=== PATIENT | male | born 2000 | race Caucasian/White ===

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

== ENCOUNTER 2022-12-09 23:23 | Emergency (ER) | payer MEDICAID ==
[~2022-12-09] VITALS: Ht 160 cm; Wt 59.0 kg
[2022-12-09 23:34] VITALS: BP 123/73; PULSE 71; RESP 20; TEMP 98; O2SAT 98
--- NOTE | 2022-12-09 23:34 | NUR ---
pt in the lobby
[2022-12-10] MEDS ORDERED: ACETAMINOPHEN EXTRA STRENGTH 500 MG TAB PO ONE (02:30)
[2022-12-10] MEDS ORDERED: cephALEXin 500 MG CAP PO ONE (02:30)
[2022-12-10] MEDS ORDERED: BACITRACIN OINT 500 UNITS/GM PKT TP ONE (02:30)
[2022-12-10] MEDS ORDERED: NON ADHERENT DRESSING TP SCH (02:30)
[2022-12-10] MEDS ORDERED: ACET-10509 PO (03:07)
[2022-12-10] MEDS ORDERED: CEPH-588 PO (03:07)
[2022-12-10] MEDS ORDERED: BACI-418 TP (03:07)
[2022-12-10] MEDS ORDERED: IBUP-2213 PO (03:07)
--- NOTE | 2022-12-10 03:20 | NUR ---
Patient discharged with v/s stable. Written and verbal after care instructions given and explained. Patient alert, oriented and verbalized understanding of instructions. Ambulatory with steady gait. All questions addressed prior to discharge. ID band removed. Patient advised to follow up with PMD. Rx of Tylenol, Bacitracin and Keflex given. Patient educated on indication of medication including possible reaction and side effects. Opportunity to ask questions provided and answered.
[2022-12-10 03:26] VITALS: BP 118/60; PULSE 60; RESP 18; TEMP 98; O2SAT 98
== END 2022-12-10 03:20 | disposition home or self-care (01) ==
LOC: MED 23:23
DX: S61.431A Puncture wound without foreign body of right hand, initial encounter (principal); J45.909 Unspecified asthma, uncomplicated; Z79.899 Other long term (current) drug therapy; W29.8XXA Contact with other powered hand tools and household machinery, initial encounter; Y93.89 Activity, other specified; Y92.89 Other specified places as the place of occurrence of the external cause; Y99.0 Civilian activity done for income or pay
CPT/HCPCS: 73130; 90471; 90715; 99284

== ENCOUNTER 2023-05-20 23:22 | Emergency (ER) | payer MEDICAID ==
[~2023-05-20] VITALS: Ht 160 cm; Wt 59.0 kg
[~2023-05-20 23:22] MED LIST: ACET-10509 PO; BACI-418 TP; CEPH-588 PO; IBUP-2213 PO
[2023-05-20 23:30] VITALS: BP 128/83; PULSE 82; RESP 15; TEMP 97.7; O2SAT 98
[2023-05-20 23:36] VITALS: O2SAT 98
[2023-05-21] MEDS ORDERED: LIDOCAINE MPF 1% 10 MG/ML VIAL INJ ONE (00:30)
[2023-05-21] MEDS ORDERED: BACITRACIN OINT 500 UNITS/GM PKT TP ONE (00:30)
== END 2023-05-21 01:27 | disposition home or self-care (01) ==
LOC: MED 23:22
DX: S61.217A Laceration without foreign body of left little finger without damage to nail, initial encounter (principal); J45.909 Unspecified asthma, uncomplicated; Z79.899 Other long term (current) drug therapy; Z79.1 Long term (current) use of non-steroidal anti-inflammatories (NSAID); Z79.2 Long term (current) use of antibiotics; W26.0XXA Contact with knife, initial encounter; Y93.89 Activity, other specified; Y92.89 Other specified places as the place of occurrence of the external cause; Y99.8 Other external cause status
CPT/HCPCS: 12001; 99282; J2001

== ENCOUNTER 2023-05-27 16:13 | Emergency (ER) | payer MEDICAID ==
[~2023-05-27] VITALS: Ht 160 cm; Wt 59.0 kg
[2023-05-27 16:27] VITALS: BP 110/61; PULSE 68; RESP 16; TEMP 97.4; O2SAT 98
[2023-05-27 16:36] VITALS: O2SAT 98
== END 2023-05-27 16:59 | disposition home or self-care (01) ==
LOC: MED 16:13
DX: S61.217D Laceration without foreign body of left little finger without damage to nail, subsequent encounter (principal); Z48.02 Encounter for removal of sutures; J45.909 Unspecified asthma, uncomplicated; Z79.899 Other long term (current) drug therapy; Z79.1 Long term (current) use of non-steroidal anti-inflammatories (NSAID); Z79.2 Long term (current) use of antibiotics; X58.XXXD Exposure to other specified factors, subsequent encounter
CPT/HCPCS: 99281